=== PATIENT | female | born 1995 | race African-American/Black ===

== ENCOUNTER 2021-03-25 23:38 | Emergency (ER) | payer SELFPAY ==
[~2021-03-25] VITALS: Ht 160 cm; Wt 68.0 kg
[2021-03-26] MEDS ORDERED: LORAZEPAM 2MG/ML CPJ IV STA (00:15)
[2021-03-26] MEDS ORDERED: SODIUM CHLORIDE 0.9% 1,000 ML IV ONE (00:15)
[2021-03-26] MEDS ORDERED: ONDANSETRON HCL 4MG/2ML INJ IV STA (00:15)
[2021-03-26 01:18] LABS: BASOPHILS % 0.7 % (0.0-2.0); EOSINOPHILS % 1.4 % (0.0-5.0); HEMATOCRIT. 39.4 % (36.0-48.0); HEMOGLOBIN. 13.3 g/dL (12.0-16.0); LYMPHOCYTES % 40.9 % (20.0-50.0); MEAN CORPUSCULAR HEMOGLOBIN 27.2 pg (28.0-32.0); MEAN CORPUSCULAR VOLUME 80.6 fL (81.0-99.0); MEAN PLATELET VOLUME 8.7 fl (7.4-10.4); MONOCYTES % 9.2 % (2.0-8.0); NEUTROPHILS % 47.8 % (40.0-76.0); PLATELET 268 x1000/uL (130-400); RED BLOOD CELL COUNT 4.89 mill/uL (4.2-5.4); RED CELL DISTRIBUTION WIDTH 14.5 % (11.6-14.6)
[2021-03-26 01:27] LABS: CHLORIDE 103 mEq/L (98-107)
[2021-03-26 01:36] LABS: ETHANOL BLOOD < 10 mg/dL
[2021-03-26 01:40] LABS: CREATINE KINASE 132 IU/L (26-192)
[2021-03-26 01:41] LABS: HCG SCREEN NEGATIVE
[2021-03-26] MEDS ORDERED: KCL 10MEQ/50ML PREMIX 50 ML IV ONE (02:30)
[2021-03-26] MEDS ORDERED: POTASSIUM CHLORIDE 20MEQ TABLET SR PO ONE (02:30)
[2021-03-26 02:43] LABS: CLARITY URINE CLEAR (CLEAR); COLOR URINE YELLOW (YELLOW); KETONES URINE NEGATIVE (NEGATIVE); LEUKOCYTE ESTERASE URINE TRACE (NEGATIVE); NITRITE URINE NEGATIVE (NEGATIVE); OCCULT BLOOD URINE TRACE (NEGATIVE); PROTEIN URINE TRACE (NEGATIVE); SPECIFIC GRAVITY URINE 1.009 (1.005-1.030); UROBILINOGEN URINE 0.2 E.U./dL (0.2-1.0)
[2021-03-26 02:56] LABS: *BARBITURATES SCREEN URINE NEGATIVE (NEGATIVE)
[2021-03-26 02:57] LABS: *AMPHETAMINES SCREEN URINE NEGATIVE (NEGATIVE); *BENZODIAZEPINES SCREEN URINE NEGATIVE (NEGATIVE); *COCAINE SCREEN URINE NEGATIVE (NEGATIVE); METHADONE URINE SCREEN NEGATIVE (NEGATIVE); OPIATES URINE SCREEN NEGATIVE (NEGATIVE); PHENCYCLIDINE URINE SCREEN NEGATIVE (NEGATIVE)
[2021-03-26 03:00] LABS: CANNABINOID URINE SCREEN PRESUMTIVE POSITIVE (NEGATIVE)
[2021-03-26] MEDS ORDERED: POTA20TA82 MT (05:08)
[2021-03-26 06:26] VITALS: BP 136/82
== END 2021-03-26 06:12 | disposition home or self-care (01) ==
LOC: ER 23:38
DX: R00.2 Palpitations (principal); E87.6 Hypokalemia; R73.9 Hyperglycemia, unspecified; T40.7X1A Poisoning by cannabis (derivatives), accidental (unintentional), initial encounter; Y92.9 Unspecified place or not applicable
CPT/HCPCS: 36415; 71045; 80053; 80305; 80307; 80320; 80329; 81003; 82550; 84443; 84484; 84703; 85025; 93005; 96361; 96365; 96375; 99285; J2060; J2405; J3480; J7030; G0480